=== PATIENT | male | born 1985 | race Caucasian/White ===

== ENCOUNTER 2017-10-22 14:40 | Emergency (ER) | payer MEDICARE, MEDICAID ==
[~2017-10-22] VITALS: Ht 170.2 cm; Wt 71.0 kg
[2017-10-22 14:45] VITALS: BP 129/75
[2017-10-22] MEDS ORDERED: LAMO200T PO (15:02)
[2017-10-22] MEDS ORDERED: ESCI20TA38 PO (15:02)
== END 2017-10-22 15:14 | disposition home or self-care (01) ==
LOC: ER 14:41
DX: F41.9 Anxiety disorder, unspecified (principal); F39 Unspecified mood [affective] disorder; Z76.0 Encounter for issue of repeat prescription; Z88.8 Allergy status to other drugs, medicaments and biological substances; Z79.899 Other long term (current) drug therapy
CPT/HCPCS: 99283

== ENCOUNTER 2019-03-11 20:15 | Emergency (ER) | payer MEDICAID, OTHER ==
[~2019-03-11] VITALS: Ht 167.6 cm; Wt 72.0 kg
[~2019-03-11 20:15] MED LIST: ESCI20TA38 PO; LAMO200T PO
[2019-03-11 20:33] VITALS: BP 126/74
[2019-03-11] MEDS ORDERED: ALBU6.7H9 INH (21:08)
== END 2019-03-11 21:25 | disposition home or self-care (01) ==
LOC: ER 20:15
DX: J45.909 Unspecified asthma, uncomplicated (principal); Z76.0 Encounter for issue of repeat prescription; F17.200 Nicotine dependence, unspecified, uncomplicated; R06.02 Shortness of breath; Z79.899 Other long term (current) drug therapy; Z88.8 Allergy status to other drugs, medicaments and biological substances
CPT/HCPCS: 99283

== ENCOUNTER 2019-04-12 16:45 | Emergency (ER) | payer MEDICAID, OTHER ==
[~2019-04-12] VITALS: Ht 167.6 cm; Wt 72.3 kg
[~2019-04-12 16:45] MED LIST changes: +ALBU6.7H9 INH; -LAMO200T PO; +LAMO200T10 PO
[2019-04-12 16:48] VITALS: BP 117/66
[2019-04-12] MEDS ORDERED: ALBU8.5H8 INH (17:22)
== END 2019-04-12 17:43 | disposition home or self-care (01) ==
LOC: ER 16:46
DX: J45.909 Unspecified asthma, uncomplicated (principal); Z76.0 Encounter for issue of repeat prescription; Z88.8 Allergy status to other drugs, medicaments and biological substances; Z79.899 Other long term (current) drug therapy
CPT/HCPCS: 99283

== ENCOUNTER 2019-05-12 18:14 | Emergency (ER) | payer MEDICAID ==
[~2019-05-12] VITALS: Ht 167.6 cm; Wt 75.0 kg
[~2019-05-12 18:14] MED LIST changes: +ALBU8.5H8 INH
[2019-05-12 18:17] VITALS: BP 119/77
[2019-05-12] MEDS ORDERED: ALBU8HFA PO (19:13)
== END 2019-05-12 19:33 | disposition home or self-care (01) ==
LOC: ER 18:14
DX: J45.909 Unspecified asthma, uncomplicated (principal); Z76.0 Encounter for issue of repeat prescription; F12.90 Cannabis use, unspecified, uncomplicated; Z88.8 Allergy status to other drugs, medicaments and biological substances; Z79.899 Other long term (current) drug therapy
CPT/HCPCS: 99283

== ENCOUNTER 2020-08-16 22:43 | Emergency (ER) | payer MEDICAID ==
[~2020-08-16] VITALS: Ht 170.2 cm; Wt 68.2 kg
[~2020-08-16 22:43] MED LIST changes: -ESCI20TA38 PO; +ESCI20TA39 PO
[2020-08-16 23:31] LABS: BASOPHILS % (AUTO) 0.2 % (0-1); EOSINOPHILS # (AUTO) 0.6 X10'3 (0-0.9); EOSINOPHILS % (AUTO) 3.7 % (0-6); HEMATOCRIT 47.2 % (42.0-52.0); HEMOGLOBIN 16.1 g/dl (14.0-17.9); LYMPHOCYTES # (AUTO) 2.2 X10'3 (1.1-4.8); LYMPHOCYTES % (AUTO) 13.9 % (21-51); MEAN CORPUSCULAR HEMOGLOBIN 31.4 PG (27.0-31.0); MEAN CORPUSCULAR HGB CONC 34.2 g/dL (33.0-36.5); MEAN CORPUSCULAR VOLUME 91.9 FL (78-98); MEAN PLATELET VOLUME 9.3 FL (7.4-10.4); MONOCYTES # (AUTO) 0.9 X10'3 (0-0.9); MONOCYTES % (AUTO) 5.5 % (2-12); NEUTROPHILS % (AUTO) 76.7 % (42-75); PLATELET COUNT 241 X10'3 (140-440); RED BLOOD COUNT 5.14 X10'6 (4.70-6.10); RED CELL DISTRIBUTION WIDTH 11.8 % (11.5-14.5); WHITE BLOOD COUNT 15.7 X10'3 (4.5-11.0)
[2020-08-16 23:53] LABS: ALANINE AMINOTRANSFERASE 26 U/L (12-78); ALBUMIN 4.1 G/DL (3.4-5.0); ALBUMIN/GLOBULIN RATIO 1.2 (1.1-1.5); ALKALINE PHOSPHATASE 54 IU/L (46-116); ANION GAP 9 (8-16); ASPARTATE AMINO TRANSFERASE 19 U/L (10-37); BILIRUBIN,TOTAL 0.3 MG/DL (0.1-1.0); BLOOD UREA NITROGEN 12 MG/DL (7-18); BUN/CREATININE RATIO 11.7 (5.4-32.0); CALCIUM 9.1 MG/DL (8.5-10.1); CHLORIDE 100 MMOL/L (99-107); CREATININE 1.03 MG/DL (0.60-1.10); GLUCOSE 102 MG/DL (70-104); LIPASE 59 U/L (73-393); SODIUM 141 MMOL/L (135-145); TOTAL CARBON DIOXIDE 32.3 MMOL/L (24-32); TOTAL PROTEIN 7.5 G/DL (6.4-8.2); eGFR 82 ML/MIN
[2020-08-17] MEDS ORDERED: PENI500T2 PO (00:22)
[2020-08-17] MEDS ORDERED: ondansetron 4mg rapidly disintigrating tab PO ONE (00:25)
[2020-08-17] MEDS ORDERED: penicillin V potassium 500mg tablet PO ONE (00:25)
[2020-08-17 00:29] LABS: CLARITY,URINE CLEAR (Clear); COLOR,URINE YELLOW (Yellow); GLUCOSE, URINE NEGATIVE (Neg); KETONES,URINE NEGATIVE (Neg); LEUKOCYTE ESTERASE ,URINE NEGATIVE (Neg); NITRITES, URINE NEGATIVE (Neg); OCCULT BLOOD,URINE NEGATIVE (Neg); PH,URINE 7.5 (4.8-8.0); PROTEIN,URINE NEGATIVE (Neg); UA COLLECTION TYPE CLN CATCH MIDSTREAM; UROBILINOGEN,URINE 0.2 E.U/dL (0.2-1.0)
[2020-08-17 00:41] VITALS: BP 125/78
== END 2020-08-17 00:41 | disposition home or self-care (01) ==
LOC: ER 22:44
DX: K05.10 Chronic gingivitis, plaque induced (principal); R11.0 Nausea; R10.30 Lower abdominal pain, unspecified; J45.909 Unspecified asthma, uncomplicated; F12.90 Cannabis use, unspecified, uncomplicated; Z88.8 Allergy status to other drugs, medicaments and biological substances; Z79.2 Long term (current) use of antibiotics; Z79.899 Other long term (current) drug therapy
CPT/HCPCS: 36415; 80053; 81003; 83690; 85025; 99283

== ENCOUNTER 2021-01-31 01:34 | Emergency (ER) | payer MEDICAID ==
[~2021-01-31] VITALS: Ht 167.6 cm; Wt 72.7 kg
[~2021-01-31 01:34] MED LIST changes: +ALBU8.5H17 INH; -ALBU8.5H8 INH
[2021-01-31 01:42] VITALS: BP 122/79
[2021-01-31] MEDS ORDERED: ipratropium/albuterol 3ml nebule NEB STA (01:46)
[2021-01-31] MEDS ORDERED: ALBU8HFA PO (02:26)
== END 2021-01-31 02:31 | disposition home or self-care (01) ==
LOC: ER 01:35
DX: J45.909 Unspecified asthma, uncomplicated (principal); F17.200 Nicotine dependence, unspecified, uncomplicated; F12.90 Cannabis use, unspecified, uncomplicated; Z88.8 Allergy status to other drugs, medicaments and biological substances; Z79.899 Other long term (current) drug therapy
CPT/HCPCS: 94640; 94760; 99283

== ENCOUNTER 2021-04-18 20:59 | Emergency (ER) | payer MEDICAID ==
[~2021-04-18] VITALS: Ht 167.6 cm; Wt 72.7 kg
[2021-04-18 21:09] VITALS: BP 122/93
[2021-04-18] MEDS ORDERED: PRED20TA PO (22:04)
[2021-04-18] MEDS ORDERED: BECL7.3A INH (22:04)
== END 2021-04-18 22:49 | disposition home or self-care (01) ==
LOC: ER 21:00
DX: J40 Bronchitis, not specified as acute or chronic (principal); Z88.8 Allergy status to other drugs, medicaments and biological substances; Z79.899 Other long term (current) drug therapy
CPT/HCPCS: 99283